=== PATIENT | female | born 1960 | race Caucasian/White ===

== ENCOUNTER → 2017-09-06 | Outpatient (CLI) | payer MEDICAID ==
[~2017-09-06] MED LIST: DIAZ5TAB4 PO; LANS30CA60 PO; LIDOCAINE 1%, 2ML ONE; LISI-167 PO; METH4TAB2 PO; METH750T87 PO; OXYC-302 PO; POLY17PO3 PO; SODIUM BICARBONATE 4.2%, 5ML ONE; VENL75CA PO; WELLBUTRIN
== END | disposition home or self-care (01) ==
LOC: EDSTATUS 08-25 14:00 → CFH 14:03
PROVIDERS: ATTEND Genetic Counselor, MS
DX: D24.2 Benign neoplasm of left breast (principal); Z80.3 Family history of malignant neoplasm of breast
CPT/HCPCS: 19083; 77065; 88305; J3490